=== PATIENT | male | born 1995 | race Two or more races ===

== ENCOUNTER 2020-08-31 11:34 | Emergency (ER) | payer SELFPAY ==
[~2020-08-31] VITALS: Ht 170.2 cm; Wt 63.5 kg
--- NOTE | 2020-08-31 13:54 | NUR ---
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
[2020-08-31 14:06] LABS: BASOPHILS # (AUTO) 0.1 /CMM (0.0-0.2); BASOPHILS % (AUTO) 1.7 % (0.0-2.0); EOSINOPHILS % (AUTO) 3.2 % (0.0-6.0); HEMATOCRIT 43 % (39-51); HEMOGLOBIN 14.6 g/dL (13.5-17.5); LYMPHOCYTES # (AUTO) 1.5 /CMM (0.8-4.8); LYMPHOCYTES % (AUTO) 25.5 % (20.0-44.0); MEAN CORPUSCULAR HGB CONC 34 g/dl (31.0-36.0); MEAN CORPUSCULAR VOLUME 88 fL (80-96); MONOCYTES # (AUTO) 0.6 /CMM (0.1-1.30); MONOCYTES % (AUTO) 9.7 % (2.0-12.0); NEUTROPHILS # (AUTO) 3.5 /CMM (1.8-8.9); NEUTROPHILS % (AUTO) 59.9 % (43.0-81.0); PLATELET COUNT (AUTO) 151 /CMM (150-450); RED BLOOD CELL COUNT(AUTO) 4.88 MIL/uL (4.5-6.0); WHITE BLOOD COUNT (AUTO) 5.8 K/uL (4.3-11.0)
[2020-08-31 14:56] LABS: CALCIUM, SERUM 9.3 mg/dL (8.5-10.1); CREATININE 0.7 mg/dL (0.6-1.3); POTASSIUM 3.6 mmol/L (3.5-5.1)
[2020-08-31 15:10] VITALS: BP 115/77
--- NOTE | 2020-08-31 15:10 | NUR ---
Patient discharged back to facilityt in stable condition. Written and verbal after care instructions given. Facility staff verbalizes understanding of instruction.
== END 2020-08-31 15:11 | disposition home or self-care (01) ==
LOC: ER 11:41
DX: R25.3 Fasciculation (principal); F84.0 Autistic disorder
CPT/HCPCS: 36415; 80048-TC; 85025-TC